=== PATIENT | female | born 1985 | race African-American/Black ===

== ENCOUNTER 2016-08-05 11:27 | Emergency (ER) | payer OTHER ==
[~2016-08-05] VITALS: Ht 157.5 cm; Wt 49.9 kg
--- NOTE | 2016-08-05 11:30 | NUR ---
PT PRESENTED TO THE ER WITH A C/O N/V X 3 DAYS. PT AMBULATED TO BED #3 WITH A SLOW STEADY GAIT. PT GAVE A URINE SAMPLE AND WAS CONNECTED TO THE MONITOR AND CONTINUOUS PULSE OX. FAMILY IS AT THE BEDSIDE. RESP EVEN AND UNLABORED.
[2016-08-05] MEDS ORDERED: ONDANSETRON HCL/PF 4 MG/2 ML VIAL ONE (11:50)
[2016-08-05] MEDS ORDERED: IV SET PRIMARY 1 EA INFUS.SET MC ONE ×2 (11:50→13:41)
[2016-08-05] MEDS ORDERED: IV NS 0.9% 1,000 ML ONE (11:50)
[2016-08-05 11:59] LABS: BASOPHILS % (AUTO) 0.1 % (0.0-2.0); EOSINOPHILS % (AUTO) 0.1 % (0.0-6.0); HEMATOCRIT 38 % (33-45); HEMOGLOBIN 12.6 g/dL (11.5-14.8); LYMPHOCYTES # (AUTO) 1.5 /CMM (0.8-4.8); LYMPHOCYTES % (AUTO) 11.8 % (20.0-44.0); MEAN CORPUSCULAR HEMOGLOBIN 29 PG (26.0-33.0); MEAN CORPUSCULAR HGB CONC 34 g/dl (31.0-36.0); MEAN CORPUSCULAR VOLUME 85 fL (82-100); MONOCYTES # (AUTO) 0.6 /CMM (0.1-1.30); MONOCYTES % (AUTO) 4.6 % (2.0-12.0); NEUTROPHILS # (AUTO) 10.5 /CMM (1.8-8.9); NEUTROPHILS % (AUTO) 83.4 % (43.0-81.0); PLATELET COUNT (AUTO) 243 /CMM (150-450); RDW COEFFICIENT OF VARIATION 14.5 (11.5-15.0); RED BLOOD CELL COUNT(AUTO) 4.43 MIL/uL (4.0-5.2); WHITE BLOOD COUNT (AUTO) 12.6 K/uL (4.3-11.0)
[2016-08-05] MEDS ORDERED: IV NS 0.9% 1,000 ML BAG IV ONE (12:00)
[2016-08-05] MEDS ORDERED: ONDANSETRON HCL/PF 4 MG/2 ML VIAL IVP ONE (12:00)
--- NOTE | 2016-08-05 12:03 | NUR ---
PT REC'D MEDICATION ORDERED.
[2016-08-05 12:08] LABS: CALCIUM, SERUM 8.8 mg/dL (8.5-10.1); POTASSIUM 3.3 mmol/L (3.5-5.1)
[2016-08-05 12:14] LABS: ALBUMIN 3.6 g/dL (3.4-5.0); BILIRUBIN,DIRECT 0.2 mg/dL (0.0-0.2); BILIRUBIN,TOTAL 0.9 mg/dL (0.2-1.0); TOTAL PROTEIN, SERUM 8.3 g/dL (6.4-8.2)
--- NOTE | 2016-08-05 12:25 | NUR ---
PT REC'D ICE CHIPS AND IS TOLERATING THEM WELL. NO N/V NOTED.
[2016-08-05] MEDS ORDERED: IV NS 0.9% 500 ML IV ONE (13:41)
--- NOTE | 2016-08-05 13:51 | NUR ---
hand woodworking sander is at bedside with patient, md at bedside with patient, patient is cooperating, will continue to monitor closely.
[2016-08-05] MEDS ORDERED: IV NS 0.9% 500 ML BAG IV ONE (14:00)
[2016-08-05 14:13] VITALS: BP 112/68
--- NOTE | 2016-08-05 14:14 | NUR ---
Patient discharged to home in stable condition. Written and verbal after care instructions given. Patient verbalizes understanding of instruction. IV removed. Catheter intact and site benign. Pressure and 4x4 applied to site. No bleeding noted. nad noted upon discharge
== END 2016-08-05 14:14 | disposition home or self-care (01) ==
LOC: ER 11:28
DX: R11.2 Nausea with vomiting, unspecified (principal)
CPT/HCPCS: 36415; 80048-TC; 80076-TC; 83690-TC; 84703-TC; 85025-TC; A4606; J2405; J7030; J7040; Z7610